=== PATIENT | male | born 1975 | race Caucasian/White ===

== ENCOUNTER 2024-09-18 22:51 | Inpatient (IN) | payer OTHER ==
[2024-09-18] MEDS ORDERED: ONDANSETRON 4 MG/2 ML VIAL ONE (23:34)
[2024-09-18] MEDS ORDERED: DICYCLOMINE HCL 20 MG/2 ML AMP IM ONE (23:34)
[2024-09-18] MEDS ORDERED: KETOROLAC 30 MG/ML INJ ONE (23:34)
[2024-09-18] MEDS ORDERED: NA CHLORIDE 0.9% 2,000 ML ONE (23:35)
[2024-09-18 23:37] LABS: Absolute Eosinophils 0.1 K/uL (0-0.5); Absolute Lymphocytes (CBC) 0.9 K/uL (0.7-4.9); Absolute Monocytes 0.7 K/uL (0.1-1.3); Absolute Neutrophil 7.5 K/uL (1.8-8.0); Basophils % 0.4 % (0-1.3); Eosinophils % 1.6 % (0-4.4); Hematocrit 48.1 % (39.6-49.0); Hemoglobin 16.9 g/dL (13.6-17.9); Lymphocytes % 9.2 % (15.3-44.8); MCH 30.7 pg (27.0-35.0); MCHC 35.2 g/dL (32.0-36.0); MCV 87.3 fL (80-100); MPV 9.3 fL (7.6-11.3); Monocytes % 7.9 % (3.3-12.3); Neutrophils % 80.9 % (41.7-73.7); Nucleated Red Blood Cells % 0.1 % (0-0); Platelets 229 thou/uL (152-406); RBC Red Blood Cell Count 5.51 M/uL (4.33-5.43); Red Cell Distribution Width 13.5 % (12.1-15.2)
[2024-09-19 00:04] LABS: Albumin 3.9 g/dL (3.4-5.0); Anion Gap 9.9 mEq/L (5.0-15.0); Bilirubin Total 1.7 mg/dL (0.2-1.0); Globulin 3.8 g/dL (2.3-3.5); Potassium 3.9 mEq/L (3.5-5.1); Protein, Total 7.7 g/dL (6.4-8.2)
[2024-09-19 00:53] LABS: Specific Gravity > 1.030 (1.005-1.030); Sqamous Epithelial <5 /HPF (None Seen); Urine Bacteria None Seen /HPF (<20); Urine Bilirubin NEGATIVE (Negative); Urine Blood 1+ (Negative); Urine Clarity Clear (Clear); Urine Color Yellow (Yellow); Urine Culture Reflex Order NOT NEEDED; Urine Glucose NEGATIVE (Negative); Urine Ketones 1+ (Negative); Urine Micro Reflex YN NO BILL MICROSCOPIC; Urine Mucus 4+ /HPF (None Seen); Urine Nitrite NEGATIVE (Negative); Urine Protein 1+ (Negative); Urine Urobilinogen 1+ (Normal); Urine WBC <5 /HPF (<5)
--- NOTE | 2024-09-19 02:15 | EDPHYS ---
Physician Documentation [facility] Name: Glen Gotti Age: 49 yrs Sex: Male : 1975 Arrival Date: 09/18/2024 Time: 22:51 Bed 6 Private MD: ED Physician Stanley Eric HPI: 09/18 23:00 This 49 yrs old Male presents to ER via Unassigned with complaints of sp4 Abdominal Swelling, Abdominal Pain, Diarrhea, H/O MALIGNACY OF COLON, COLECTOMY IN 2019. 09/19 07:18 Patient presents with complaint of diffuse abdominal pain vomiting and diarrhea. sp4 History of colon cancer with partial colectomy of ascending colon in 2019.. Historical: - Allergies: 09/18 23:00 No Known Allergies; rg5 - PMHx: 23:00 appendectomy; removal of ascending colon; rg5 - Immunization history:: Adult Immunizations not up to date. - Infectious Disease History:: Denies. - Social history:: Smoking status: Patient reports the use of cigarette tobacco products. - Family history:: not pertinent. ROS: 09/19 07:18 Constitutional: Negative for fever, chills, and weight loss, Eyes: Negative for sp4 injury, pain, redness, and discharge, All other systems are negative, Exam: 07:18 Constitutional: This is a well developed, well nourished patient who is awake, alert, sp4 and in no acute distress. Head/Face: Normocephalic, atraumatic. Eyes: Pupils equal round and reactive to light, extra-ocular motions intact. Lids and lashes normal. Conjunctiva and sclera are not injected. Cornea within normal limits. Periorbital areas with no swelling, redness, or edema. ENT: Nares patent. No nasal discharge, no septal abnormalities noted. Tympanic membranes are normal and external auditory canals are clear. Oropharynx with no redness, swelling, or masses, exudates, or evidence of obstruction, uvula midline. Mucous membranes moist. Neck: Trachea midline, no thyromegaly or masses palpated, and no cervical lymphadenopathy. Supple, full range of motion without nuchal rigidity, or vertebral point tenderness. Chest/axilla: Normal chest wall appearance and motion. Nontender with no deformity. No lesions are appreciated. Cardiovascular: Regular rate and rhythm with a normal S1 and S2. No gallops, murmurs, or rubs. Normal PMI, no JVD. No pulse deficits. Respiratory: Lungs have equal breath sounds bilaterally, clear to auscultation and percussion. No rales, rhonchi or wheezes noted. No increased work of breathing, no retractions or nasal flaring. Abdomen/GI: Soft, with normal bowel sounds. Diffuse abdominal tenderness with mild distention Back: No spinal tenderness. No costovertebral tenderness. Skin: Warm, dry with normal turgor. Normal color with no rashes, no lesions, and no evidence of cellulitis. MS/ Extremity: Pulses equal, no cyanosis. Neurovascular intact. Full, normal range of motion. Neuro: Awake and alert, GCS 15, oriented to person, place, time, and situation. Cranial nerves II-XII grossly intact. Motor strength 5/5 in all extremities. Sensory grossly intact. Psych: Awake, alert, with orientation to person, place and time. Behavior, mood, and affect are within normal limits Vital Signs: 09/18 23:00 BP 154 / 93; Pulse 91; Resp 17; Temp 98; Pulse Ox 96% on R/A; Weight 124.74 kg; Height rg5 5 ft. 11 in. ; Pain 8/10; 09/19 00:30 BP 121 / 75; Pulse 77; Resp 17; Pulse Ox 98% on R/A; Pain 0/10; rg5 01:36 BP 151 / 93; Pulse 74; Resp 17; Pulse Ox 97% on R/A; rg5 02:25 BP 167 / 91; Pulse 70; Resp 17; Pulse Ox 98% on R/A; rg5 03:29 BP 124 / 76; Pulse 76; Resp 18; Pulse Ox 96% on R/A; Pain 2/10; 5 09/18 23:00 Body Mass Index 38.35 (124.74 kg, 180.34 cm) [facility] 09/18 23:00 Pain Scale: Adult 5 09/19 00:30 Pain Scale: Adult rg5 03:29 Pain Scale: Adult rg5 Sandeep Coma Score: 07:18 Eye Response: spontaneous(4). Motor Response: obeys commands(6). Verbal Response: sp4 oriented(5). Total: 15. MDM: 09/18 23:12 Medical Screening Exam initiated sp4 09/19 01:39 ED course: PROCEDURE: Contrast-enhanced images of the abdomen and pelvis were performed sp4 from the lung bases to the ischial tuberosities after the administration of IV contrast. In addition multiplanar reformats in the coronal and sagittal plane were obtained and reviewed. An individualized dose optimization technique, Automated Exposure Control, was utilized for the performed procedure. FINDINGS: Lung bases: The lung bases demonstrate to be clear. Metallic artifact within the gastroesophageal junction correspond to LINX Device for gastroesophageal reflux disease. Liver: The liver demonstrated presence of decreased attenuation corresponding to fatty infiltration. Gallbladder: The gallbladder demonstrates presence of layering high density structures corresponding to cholelithiasis. No significant inflammatory changes and/or biliary duct dilatation. Adrenal glands: The adrenal glands demonstrate to be normal. Pancreas: The pancreas demonstrate to be normal. Spleen: The spleen demonstrate to be within normal limits. Kidneys: The kidneys demonstrate normal uptake of contrast media. There is no evidence for nephrolithiasis and/or hydronephrosis. GI: There is a metallic artifact within the gastric esophageal junction corresponding to a LINX device for gastroesophageal reflux disease. Otherwise the the unopacified stomach demonstrate to be within normal limits. There is a prominent/dilated small bowel loops left flank and down to the pelvis extending along the right lower quadrant within the region of the surgical anastomosis with the findings just most likely right hemicolectomy. No definite transition is identified. The left-sided colon demonstrate to be decompressed with no gross abnormalities. : The urinary bladder demonstrate to be partially distended with no gross abnormalities. Genitalia: The prostate gland is normal. Abdominal aorta: The aorta demonstrate to be within normal limits. Retroperitoneum:There is no retroperitoneal lymphadenopathy. Small trace of fluid within the rectovesical space. Bones: The bony structures demonstrate to be within normal limits. No evidence for compression deformity and/or significant skeletal lesions. Soft tissues: Minimal haziness is identified within the umbilical/periumbilical area findings could correspond to minimal inflammation and/or fluid perhaps related to previous trocar from laparoscopic surgery. IMPRESSION: Prominent/dilated small bowel loops left flank and down to the pelvis extending along the right lower quadrant within the region of the surgical anastomosis with the findings just most likely right hemicolectomy. No definite transition is identified. Minimal haziness within the umbilical/periumbilical area findings could correspond to minimal inflammation and/or fluid perhaps related to previous trocar from laparoscopic surgery. Cholelithiasis. Fatty infiltration of the liver. Metallic artifact within the gastroesophageal junction corresponding to a LINX device for gastroesophageal reflux disease. . 02:07 Differential diagnosis: Nonspecific abd pain, gastritis, pancreatitis, diverticulitis, sp4 viral gastroenteritis, gastroenteritis. Data reviewed: vital signs, nurses notes, lab test result(s), radiologic studies, CT scan. Consideration of Admission/Observation Patient was admitted/placed on observation. Escalation of care including admission/observation considered. Management of patient was discussed with the following: Hospitalist: Bhavik LARA. Cotton Dispatcher: Ryan LARA . ED course: Partial small bowel obstruction noticed by radiologist on CT. This was termed as dilated small bowel loops left flank in the region of surgical anastomosis with the findings most likely right hemicolectomy. Patient was informed that he should be admitted to the hospital and made n.p.o. NG tube not indicated at this time. Will place consult for General Surgeon . 09/18 23:12 Order name: CBC with Diff; Complete Time: 01:39 sp4 09/18 23:12 Order name: CMP; Complete Time: 01:39 sp4 09/18 23:12 Order name: Lipase; Complete Time: 01:39 sp4 09/18 23:33 Order name: Urinalysis W/Microscopic; Complete Time: 01:39 sp4 09/19 02:29 Order name: Urinalysis w/ reflexes [facility] 09/19 02:29 Order name: CBC with Automated Diff [facility] 09/19 02:29 Order name: CBC with Automated Diff [facility] 09/19 02:29 Order name: Comprehensive Metabolic Panel [facility] 09/19 02:29 Order name: Comprehensive Metabolic Panel [facility] 09/18 23:33 Order name: CT Abd/Pelvis - IV Contrast Only sp4 09/19 02:29 Order name: CONS Physician Consult [facility] 09/18 23:12 Order name: IV Saline Lock; Complete Time: 23:27 sp4 09/18 23:12 Order name: Labs collected and sent; Complete Time: 23:27 sp4 Administered Medications: 09/18 23:48 Drug: NS 0.9% IV 1000 ml IV at 1 bolus Per protocol; to be given as a bolus over 60 rg5 minutes Route: IV; Rate: 1 bolus; Site: left antecubital; 09/19 03:27 Follow up: IV Status: Completed infusion; IV Intake: 1000ml rg5 09/18 23:48 Drug: NS 0.9% IV 1000 ml IV at 1 bolus Per protocol; to be given as a bolus over 60 rg5 minutes Route: IV; Rate: 1 bolus; Site: left antecubital; 09/19 03:27 Follow up: IV Status: Completed infusion; IV Intake: 1000ml rg5 09/18 23:49 Drug: Ondansetron IVP 4 mg IVP once; over 2 minutes Route: IVP; Site: left antecubital; rg5 09/19 03:27 Follow up: Response: No adverse reaction rg5 09/18 23:49 Drug: Ketorolac IVP 30 mg IVP once Route: IVP; Site: left antecubital; rg5 09/19 00:00 Follow up: Response: No adverse reaction; Pain is decreased rg5 09/18 23:49 Drug: Dicyclomine IM 20 mg IM once Route: IM; Site: left deltoid; rg5 09/19 03:26 Follow up: Response: No adverse reaction rg5 02:27 Drug: morphine IVP or IV 6 mg IVP once over 4 mins Route: IVP; Infused Over: 4 mins; bm8 Site: left antecubital; 03:15 Follow up: Response: No adverse reaction; Pain is decreased rg5 02:27 Drug: metoCLOPramide IVP 10 mg IVP once; over 1 to 2 minutes Route: IVP; Site: left bm8 antecubital; 03:26 Follow up: Response: No adverse reaction; Pain is decreased rg5 Disposition Summary: 09/19/24 02:13 Hospitalization Ordered Notes: Hospitalization Status: Inpatient Admission sp4 Provider: Neftali Gutierres Location: Telemetry/MedSurg (observation) sp4 Condition: Fair sp4 Problem: new sp4 Symptoms: have improved sp4 Bed/Room Type: Standard 4 Room Assignment: [facility](09/19/24 02:59) kmf Diagnosis - Change in bowel habit sp4 - Partial small bowel obstruction, history of partial colectomy, Nausea and Vomiting sp4 Forms: - Medication Reconciliation Form sp4 - SBAR form sp4 - Leadership Thank You Letter sp4 Signatures: Dispatcher [employer] Stanley Escudero MD MD sp4 [facility] Inderjit Rocha, RN RN bm8 Forest Vlaadez, RN RN rg5 Corrections: (The following items were deleted from the chart) 09/18 23:12 23:12 CBC+H.LAB.BRZ ordered. EDMS EDMS 23:12 23:12 COMPREHENSIVE METABOLIC PANEL+C.LAB.BRZ ordered. EDMS EDMS 23:12 23:12 LIPASE+C.LAB.BRZ ordered. EDMS EDMS 23:33 23:33 Urinalysis W/Microscopic+U.LAB.BRZ ordered. EDMS EDMS 23:33 23:33 Abdomen Pelvis W Con+CT.RAD.BRZ ordered. [facility] EDMS 09/19 02:59 02:[address] 07:36 07:18 Constitutional: This is a well developed, well nourished patient who is awake, sp4 alert, and in no acute distress. Head/Face: Normocephalic, atraumatic. Eyes: Pupils equal round and reactive to light, extra-ocular motions intact. Lids and lashes normal. Conjunctiva and sclera are not injected. Cornea within normal limits. Periorbital areas with no swelling, redness, or edema. ENT: Nares patent. No nasal discharge, no septal abnormalities noted. Tympanic membranes are normal and external auditory canals are clear. Oropharynx with no redness, swelling, or masses, exudates, or evidence of obstruction, uvula midline. Mucous membranes moist. Neck: Trachea midline, no thyromegaly or masses palpated, and no cervical lymphadenopathy. Supple, full range of motion without nuchal rigidity, or vertebral point tenderness. Chest/axilla: Normal chest wall appearance and motion. Nontender with no deformity. No lesions are appreciated. Cardiovascular: Regular rate and rhythm with a normal S1 and S2. No gallops, murmurs, or rubs. Normal PMI, no JVD. No pulse deficits. Respiratory: Lungs have equal breath sounds bilaterally, clear to auscultation and percussion. No rales, rhonchi or wheezes noted. No increased work of breathing, no retractions or nasal flaring. Abdomen/GI: Soft, with normal bowel sounds. No distension or tympany. No guarding or rebound. No evidence of tenderness throughout. Back: No spinal tenderness. No costovertebral tenderness. Skin: Warm, dry with normal turgor. Normal color with no rashes, no lesions, and no evidence of cellulitis. MS/ Extremity: Pulses equal, no cyanosis. Neurovascular intact. Full, normal range of motion. Neuro: Awake and alert, GCS 15, oriented to person, place, time, and situation. Cranial nerves II-XII grossly intact. Motor strength 5/5 in all extremities. Sensory grossly intact. Psych: Awake, alert, with orientation to person, place and time. Behavior, mood, and affect are within normal limits sp4
--- NOTE | 2024-09-19 02:15 | ER ---
Nurse's Notes [facility] Name: Glen Gotti Age: 49 yrs Sex: Male : 1975 Arrival Date: 09/18/2024 Time: 22:51 Bed 6 Private MD: Diagnosis: Change in bowel habit;Partial small bowel obstruction, history of partial colectomy, Nausea and Vomiting Presentation: 09/18 23:00 Chief complaint: Patient states: had a diarrhea started around 9 am, watery mostly this rg5 afternoon, my stomach feels bloated \T\ pain shoots up to 8 [address] I [address]. vomited several times whenever I try to eat \T\ drink. 23:00 Coronavirus screen: Client denies travel out of the [place] in the last 14 days. Ebola rg5 Screen: Patient negative for fever greater than or equal to 101.5 degrees Fahrenheit, and additional compatible Ebola Virus Disease symptoms. Initial Sepsis Screen: Does the patient meet any 2 criteria? No. Patient's initial sepsis screen is negative. Does the patient have a suspected source of infection? No. Patient's initial sepsis screen is negative. Risk Assessment: Do you want to hurt yourself or someone else? Patient reports no desire to harm self or others. Onset of symptoms was September 18, 2024. 23:00 Method Of Arrival: Ambulatory rg5 23:00 Acuity: ALFREDA 3 rg5 Triage Assessment: 23:00 General: Appears in no apparent distress. Behavior is calm, cooperative. Pain: rg5 Complains of pain in abdomen Pain currently is 8 out of 10 on a pain scale. Quality of pain is described as aching, Pain began gradually, 4 hours ago. GI: Reports lower abdominal pain, upper abdominal pain, bloating, cramping, diarrhea, vomiting. : No signs and/or symptoms were reported regarding the genitourinary system. Musculoskeletal: Circulation, motion, and sensation intact. Range of motion: limited in all extremities. Historical: - Allergies: 23:00 No Known Allergies; rg5 - PMHx: 23:00 appendectomy; removal of ascending colon; rg5 - Immunization history:: Adult Immunizations not up to date. - Infectious Disease History:: Denies. - Social history:: Smoking status: Patient reports the use of cigarette tobacco products. - Family history:: not pertinent. Screenin:[facility] ED Fall Risk Assessment (Adult) History of falling in the last 3 months, rg5 including since admission No falls in past 3 months (0 pts) Confusion or Disorientation No (0 pts) Intoxicated or Sedated No (0 pts) Impaired Gait No (0 pts) Mobility Assist Device Used No (0 pt) Altered Elimination No (0 pt) Score/Fall Risk Level 0 - 2 = Low Risk Oriented to surroundings, Maintained a safe environment, Hourly rounding (assess needs \T\ fall precautionary measures) done. Abuse screen: Denies threats or abuse. Nutritional screening: No deficits noted. Tuberculosis screening: No symptoms or risk factors identified. Assessment: 23:00 General: Appears in no apparent distress. comfortable. GI: Bowel sounds present in left rg5 upper quadrant Abd is soft Guarding noted Reports cramping, diarrhea, since 9am. 23:17 Reassessment: see triage assessment. 5 09/19 00:30 Reassessment: No changes from previously documented assessment. Patient and/or family rg5 updated on plan of care and expected duration. Pain level reassessed. Patient is alert, oriented x 3, equal unlabored respirations, skin warm/dry/pink. Vital Signs: 09/18 23:00 BP 154 / 93; Pulse 91; Resp 17; Temp 98; Pulse Ox 96% on R/A; Weight 124.74 kg; Height rg5 5 ft. 11 in. ; Pain 8/10; 09/19 00:30 BP 121 / 75; Pulse 77; Resp 17; Pulse Ox 98% on R/A; Pain 0/10; 5 01:36 BP 151 / 93; Pulse 74; Resp 17; Pulse Ox 97% on R/A; rg5 02:25 BP 167 / 91; Pulse 70; Resp 17; Pulse Ox 98% on R/A; rg5 03:29 BP 124 / 76; Pulse 76; Resp 18; Pulse Ox 96% on R/A; Pain 2/10; [facility] 09/18 23:00 Body Mass Index 38.35 (124.74 kg, 180.34 cm) [facility] 09/18 23:00 Pain Scale: Adult 5 09/19 00:30 Pain Scale: Adult rg5 03:29 Pain Scale: Adult rg Gilbert Coma Score: 07:18 Eye Response: spontaneous(4). Motor Response: obeys commands(6). Verbal Response: sp4 oriented(5). Total: 15. ED Course: 09/18 22:56 Patient arrived in ED. jj6 23:00 Stanley Eric MD is Attending Physician. sp4 23:00 Forest Valadez RN is Primary Nurse. rg5 23:00 Arm band placed on. rg5 23:00 Patient has correct armband on for positive identification. Bed in low position. Call rg5 light in reach. Side rails up X 1. Door closed. Noise minimized. Warm blanket given. 23:00 No provider procedures requiring assistance completed. Inserted saline lock: 20 gauge rg5 in left antecubital area, using aseptic technique. Blood collected. Flushed with 10 mL NS. 23:13 Triage completed. rg5 09/19 00:51 CT Abd/Pelvis - IV Contrast Only In Process Unspecified. EDMS 02:12 Neftali Gutierres MD is Hospitalizing Provider. sp4 03:28 Provided Education on: needs for admit. rg5 03:28 IV discontinued, bleeding controlled, No redness/swelling at site. Pressure dressing rg5 applied. Administered Medications: 09/18 23:48 Drug: NS 0.9% IV 1000 ml IV at 1 bolus Per protocol; to be given as a bolus over 60 rg5 minutes Route: IV; Rate: 1 bolus; Site: left antecubital; 09/19 03:27 Follow up: IV Status: Completed infusion; IV Intake: 1000ml rg5 09/18 23:48 Drug: NS 0.9% IV 1000 ml IV at 1 bolus Per protocol; to be given as a bolus over 60 rg5 minutes Route: IV; Rate: 1 bolus; Site: left antecubital; 09/19 03:27 Follow up: IV Status: Completed infusion; IV Intake: 1000ml rg5 09/18 23:49 Drug: Ondansetron IVP 4 mg IVP once; over 2 minutes Route: IVP; Site: left antecubital; rg5 09/19 03:27 Follow up: Response: No adverse reaction rg5 09/18 23:49 Drug: Ketorolac IVP 30 mg IVP once Route: IVP; Site: left antecubital; rg5 09/19 00:00 Follow up: Response: No adverse reaction; Pain is decreased rg5 09/18 23:49 Drug: Dicyclomine IM 20 mg IM once Route: IM; Site: left deltoid; rg5 09/19 03:26 Follow up: Response: No adverse reaction rg5 02:27 Drug: morphine IVP or IV 6 mg IVP once over 4 mins Route: IVP; Infused Over: 4 mins; bm8 Site: left antecubital; 03:15 Follow up: Response: No adverse reaction; Pain is decreased rg5 02:27 Drug: metoCLOPramide IVP 10 mg IVP once; over 1 to 2 minutes Route: IVP; Site: left bm8 antecubital; 03:26 Follow up: Response: No adverse reaction; Pain is decreased rg5 Medication: 09/18 23:00 VIS not applicable for this client. rg5 Intake: 09/19 03:27 IV: 1000ml; Total: 1000ml. rg5 03:27 IV: 1000ml; Total: 2000ml. rg5 Outcome: 02:13 Decision to Hospitalize by Provider. sp4 03:29 Admitted to Med/surg accompanied by tech, via wheelchair, rg5 03:29 Condition: stable 03:29 Instructed on the need for admit, 04:11 Patient left the ED. rg5 Signatures: Dispatcher [employer] EDMS Yanelis Thomas Sergey, MD MD sp4 Inderjit Rocha RN RN bm8 Forest Valadez RN RN rg5
[2024-09-19] MEDS ORDERED: ONDANSETRON 4 MG/2 ML VIAL IV PRN (02:24)
[2024-09-19] MEDS ORDERED: ACETAMINOPHEN 650MG/RECT SUPP PR PRN (02:24)
--- NOTE | 2024-09-19 02:24 | P.HP ---
Certification for Inpatient Patient admitted to: Inpatient With expected LOS: >2 Midnights Practitioner: I am a practitioner with admitting privileges, knowledge of patient current condition, hospital course, and medical plan of care. Services: Services provided to patient in accordance with Admission requirements found in Title 42 Section 412.3 of the Code of Federal Regulations Patient History Date of Service: 09/19/24 Reason for admission: Abdominal Pain History of Present Illness: 49 yrs old Male with past medical history of colon cancer , status post partial colectomy of ascending colon , history of DVT postsurgery, brought to ER with abdominal pain and diarrhea which has been going on since this morning. Insidious in onset. Started up heaviness in the abdomen, associated with some cramps, intermittent, had multiple episodes of diarrhea. Denies any nausea or vomiting. No fever or chills. No sick contacts. Patient had a colonoscopy yearly and the last 1 was 2023 which was showed no acute changes other than few polyps. Never had any chemotherapy or radiation therapy. 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 Had Linx device for GERD Patient was assessed in the ER and had a CT abdomen pelvis and was consistent with possible partial bowel obstruction and was admitted for further management . Allergies No Known Allergies Allergy (Unverified 09/19/24 04:13) Home medications list reviewed: Yes Home Medications: Aspirin Chewable [Aspirin Chewable*] 81 mg PO DAILY 09/19/24 Omeprazole [Prilosec] 40 mg PO DAILY 09/19/24 - Past Medical/Surgical History Past Medical History: Reviewed- Non-Contributory -: Colon Ca Past Surgical History: Reviewed- Non-Contributory - Family History Family History: Reviewed- Non-Contributory - Social History Smoking Status: Never smoker Review of Systems 10-point ROS is otherwise unremarkable Physical Examination - Vital Signs Temperature: 98 F Blood Pressure: 148/78 Pulse: 90 Respirations: 18 Pulse Ox (%): 94 - Physical Exam General: Alert, In no apparent distress, Oriented x3 HEENT: Atraumatic, Normocephalic Neck: Supple, No LAD Respiratory: Clear to auscultation bilaterally, Normal air movement Cardiovascular: Regular rate/rhythm, Normal S1 S2 Capillary refill: <2 Seconds Gastrointestinal: Soft and benign, W/out hepatosplenomegaly, Distended, Tenderness Musculoskeletal: No clubbing, No swelling Integumentary: No rashes, No breakdown Neurological: Normal strength at 5/5 x4 extr, Cranial nerves 3-12 intact, Normal reflexes 2+ Lymphatics: No axilla or inguinal lymphadenopathy - Studies Laboratory Data (last 24 hrs) 09/18/24 09/18/24 23:27 23:27 WBC 9.30 Hgb 16.9 Hct 48.1 Plt Count 229 Sodium 137 Potassium 3.9 BUN 12 Creatinine 1.31 H Glucose 115 H Total Bilirubin 1.7 H AST 31 ALT 60 Alkaline Phosphatase 89 Lipase 30 Assessment and Plan - Plan Partial small bowel obstruction Patient has multiple bowel movements Denies any constipation No nausea or vomiting CT findings noted Prominent/dilated small bowel loops left flank and down to the pelvis extending along the right lower quadrant within the region of the surgical anastomosis with the findings just most likely right hemicolectomy. No definite transition is identified. Minimal haziness within the umbilical/periumbilical area findings could correspond to minimal inflammation and/or fluid perhaps related to previous trocar from laparoscopic surgery. Will keep n.p.o. for now Surgery consulted IV hydration Cholelithiasis. Fatty infiltration of the liver. No signs of any acute cholecystitis Monitor closely History of colon cancer status post ascending colectomy Last colonoscopy was normal as per patient except for a few polyps On yearly surveillance GERD History of Basilio's CT : Metallic artifact within the gastroesophageal junction corresponding to a LINX device for gastroesophageal reflux disease. Continue PPI GI/DVT prophylaxis Advanced directive full code Discharge Plan: Home Plan to discharge in: 48 Hours - Advance Directives Does patient have a Living Will: No Does patient have a Durable POA for Healthcare: No - Code Status/Comfort Care Code Status: Full Code Time Spent Managing Pts Care (In Minutes): 48
[2024-09-19] MEDS ORDERED: METOCLOPRAMIDE 10 MG/2mL INJ ONE (02:25)
[2024-09-19] MEDS ORDERED: MORPHINE 2 MG/ML SYR ONE (02:26)
[2024-09-19] MEDS ORDERED: MORPHINE 4 MG/ML SYR ONE (02:26)
--- NOTE | 2024-09-19 03:05 | RAD REPORT ---
EXAM DESCRIPTION: CT ABDOMEN PELVIS WITH IV CONTRAST 09/19/2024 1:24 AM CDT CLINICAL HISTORY: 49 years, Male, Abdominal pain. COMPARISON: None. PROCEDURE: Contrast-enhanced images of the abdomen and pelvis were performed from the lung bases to the ischial tuberosities after the administration of IV contrast. In addition multiplanar reformats in the coronal and sagittal plane were obtained and reviewed. An individualized dose optimization technique, Automated Exposure Control, was utilized for the perfo rmed procedure. FINDINGS: Lung bases: The lung bases demonstrate to be clear. Metallic artifact within the gastroesophageal nano ction correspond to LINX Device for gastroesophageal reflux disease. Liver: The liver demonstrated presence of decreased attenuation corresponding to fatty infiltration. Gallbladder: The gallbladder demonstrates presence of layering high density structures corresponding to cholelithiasis. No significant inflammatory changes and/or biliary duct dilatation. Adrenal glands: The adrenal glands demonstrate to be normal. Pancreas: The pancreas demonstrate to be normal. Spleen: The spleen demonstrate to be within normal limits. Kidneys: The kidneys demonstrate normal uptake of contrast media. There is no evidence for nephroli thiasis and/or hydronephrosis. GI: There is a metallic artifact within the gastric esophageal junction corresponding to a LINX devic e for gastroesophageal reflux disease. Otherwise the the unopacified stomach demonstrate to be within normal limits. There is a prominent/dilated small bowel loops left flank and down to the pelvis extending along the right lower quadrant within the region of the surgical anastomosis with the findings just most likely right hemicolectomy. No definite transition is identified. The left-sided colon demonstrate to be decompressed with no gross abnormalities. : The urinary bladder demonstrate to be partially distended with no gross abnormalities. Genitalia: The prostate gland is normal. Abdominal aorta: The aorta demonstrate to be within normal limits. Retroperitoneum: There is no retroperitoneal lymphadenopathy. Small trace of fluid within the rectove sical space. Bones: The bony structures demonstrate to be within normal limits. No evidence for compression deform ity and/or significant skeletal lesions. Soft tissues: Minimal haziness is identified within the umbilical/periumbilical area findings could c orrespond to minimal inflammation and/or fluid perhaps related to previous trocar from laparoscopic surgery. IMPRESSION: Prominent/dilated small bowel loops left flank and down to the pelvis extending along the right lower quadrant within the region of the surgical anastomosis with the findings just most likely right hemicolectomy. No definite transition is identified. Minimal haziness within the umbilical/periumbilical area findings could correspond to minimal inflamm ation and/or fluid perhaps related to previous trocar from laparoscopic surgery. Cholelithiasis. Fatty infiltration of the liver. Metallic artifact within the gastroesophageal junction corresponding to a LINX device for gastroesoph ageal reflux disease. Electronically signed by: Braydon Olivas MD 09/19/2024 01:34 AM CDT RP Due to temporary technical issues with the PACS/MedStartr reporting system, reports are being anahy d by the in-house radiologist without review as a courtesy to ensure prompt reporting the interpreting radiologist is fully responsible for the content of the report. Transcribed Date/Time: 09/19/2024 3:05 AM
[2024-09-19 04:25] VITALS: BMI 39.2
[2024-09-19] MEDS: D5 0.45 NS 1,000 ML IV SCH (04:45)
[2024-09-19] MEDS: MORPHINE 2 MG/ML SYR IV PRN (06:09)
--- NOTE | 2024-09-19 07:21 | P.PN ---
Date of Service: 09/19/24 Subjective: feels some improvement pain less severe, less often denies any prior SBO episodes ROS: 10 point ROS as noted above, otherwise negative Physical Exam: GEN: Alert, oriented, NAD CV: Regular rate and rhythm, no edema Pulm: Nonlabored respirations on room air, clear bilaterally ABD: soft, diffuse tenderness but most notable epigastric/periumbilical Neuro: Normal speech, normal affect Problem List: Intractable Nausea/Vomiting, possible partial SBO Abdominal pain, Diarrhea GERD s/p LINX device cholelithiasis - incidental finding Hx of Basilio's esophagus s/p esophageal ablation Hx of colon cancer s/p partial colectomy (2019) Hx DVT, ?provoked on admission, presents with worsening abdominal pain. Reports multiple episodes of nausea/vomiting after intake; +multiple episodes of diarrhea on 09/18. Had colonoscopy in 2023 which noted a few polyps per patient otherwise okay. CT abd/pelvis (09/18): Prominent/dilated small bowel loops left flank extending down to RLQ near surgical anastomosis. Minimal haziness within the umbilical/periumbilical area findings could correspond to minimal inflammation/fluid. CT also noted Cholelithiasis, Fatty liver infiltrate, LINX device. Started on empiric zosyn on admission (09/19-) Pain control, IV fluids Given Reglan, Dicyclomine, pain meds, IVF in ED. Confirm home meds, restart as appropriate 09/19 - Dr. Davis, general surgeon consulted advance diet this evening Serial abdominal exams VTE: Lovenox Code: Full Dispo: Home, ~24-48hrs Time Spent Managing Pts Care (In Minutes): 55
[2024-09-19 07:34] LABS: Absolute Eosinophils 0.2 K/uL (0-0.5); Absolute Lymphocytes (CBC) 0.9 K/uL (0.7-4.9); Absolute Monocytes 0.7 K/uL (0.1-1.3); Absolute Neutrophil 6.2 K/uL (1.8-8.0); Basophils % 0.3 % (0-1.3); Eosinophils % 2.5 % (0-4.4); Hematocrit 41.8 % (39.6-49.0); Hemoglobin 14.6 g/dL (13.6-17.9); MCH 30.7 pg (27.0-35.0); MCHC 34.8 g/dL (32.0-36.0); MCV 88.3 fL (80-100); MPV 9.3 fL (7.6-11.3); Monocytes % 9.2 % (3.3-12.3); Platelets 182 thou/uL (152-406); RBC Red Blood Cell Count 4.74 M/uL (4.33-5.43); Red Cell Distribution Width 13.5 % (12.1-15.2)
[2024-09-19 07:40] LABS: Albumin 3.3 g/dL (3.4-5.0); Albumin/Globulin Ratio 1.1 (1.1-1.8); Anion Gap 6.1 mEq/L (5.0-15.0); Bilirubin Direct 0.4 mg/dL (0-0.2); Bilirubin Total 1.6 mg/dL (0.2-1.0); Potassium 4.1 mEq/L (3.5-5.1); Protein, Total 6.3 g/dL (6.4-8.2)
[2024-09-19] MEDS: ENOXAPARIN 40 MG/0.4 ML SQ SCH (09:00)
[2024-09-19] MEDS: PIPER TAZO 3.375 GM in NA CHLORIDE 0.9% 100 ML IV SCH (09:52)
[2024-09-19] MEDS: KETOROLAC 30 MG/ML INJ IV PRN (15:11)
[2024-09-19 16:20] VITALS: O2SAT 100
[2024-09-20 06:39] LABS: Absolute Eosinophils 0.3 K/uL (0-0.5); Absolute Lymphocytes (CBC) 1.4 K/uL (0.7-4.9); Absolute Monocytes 0.4 K/uL (0.1-1.3); Absolute Neutrophil 2.1 K/uL (1.8-8.0); Basophils % 0.4 % (0-1.3); Eosinophils % 6.2 % (0-4.4); Hematocrit 42.8 % (39.6-49.0); Hemoglobin 14.4 g/dL (13.6-17.9); Lymphocytes % 32.4 % (15.3-44.8); MCH 30.2 pg (27.0-35.0); MCHC 33.6 g/dL (32.0-36.0); MCV 89.8 fL (80-100); MPV 9.2 fL (7.6-11.3); Monocytes % 10.4 % (3.3-12.3); Neutrophils % 50.6 % (41.7-73.7); Nucleated Red Blood Cells % 0.1 % (0-0); Platelets 173 thou/uL (152-406); RBC Red Blood Cell Count 4.76 M/uL (4.33-5.43); Red Cell Distribution Width 13.4 % (12.1-15.2)
[2024-09-20 06:46] LABS: Albumin 3.1 g/dL (3.4-5.0); Albumin/Globulin Ratio 1.1 (1.1-1.8); Anion Gap 8.7 mEq/L (5.0-15.0); Globulin 2.9 g/dL (2.3-3.5); Potassium 3.7 mEq/L (3.5-5.1)
[2024-09-20] MEDS: POTASSIUM CL SA 10 MEQ TAB PO ONE (07:30)
[2024-09-20 08:03] VITALS: BP 130/76; TEMP 97.7
--- NOTE | 2024-09-20 08:26 | P.DS ---
Admission Date: 09/19/24 Discharge Date: 09/20/24 Reason for Admission: Abdominal Pain Consultations: General surgery - Dr. Davis Brief History of Present Illness: 49yo M, PMH: colon cancer , status post partial colectomy of ascending colon , history of DVT postsurgery, Patient brought to ER with abdominal pain and diarrhea which has been going on since this morning. Insidious in onset. Started up heaviness in the abdomen, associated with some cramps, intermittent, had multiple episodes of diarrhea. Denies any nausea or vomiting. No fever or chills. No sick contacts. Patient had a colonoscopy yearly and the last 1 was 2023 which was showed no acute changes other than few polyps. Never had any chemotherapy or radiation therapy. 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 Had Linx device for GERD Patient was assessed in the ER and had a CT abdomen pelvis and was consistent with possible partial bowel obstruction and was admitted for further management . Hospital Course: Problem List: Intractable Nausea/Vomiting, resolved Abdominal pain, improved cholelithiasis - incidental finding GERD s/p LINX device Hx of Basilio's esophagus s/p esophageal ablation Hx of colon cancer s/p partial colectomy (2019) Hx DVT, ?provoked Physician discharge instructions: Patient presented with worsening abdominal pain, associated with nausea/vomiting worsened with intake. He reports multiple episodes of watery diarrhea on day of admission prior to arrival. CT abdomen/pelvis noted some prominent/dilated small bowel loops without a definite transition point. Given his history of R hemicolectomy / risk of SBO, he was admitted and managed conservatively for possible small bowel obstruction. His symptoms improved by the next morning. He was evaluated by [facility], Dr. Davis, and diet was advanced on the evening of 09/19. He had continued improvement, remained afebrile, without leukocytosis. His mild JENNIFER (Cr: 1.3, down to 1.19) and mild elevated of T. bili: 1.7 down to 1.0, resolved. Consistent with hypovolemia/dehydration. His CT did note layering stones in his gallbladder, but no evidence of inflammation/infection, no evidence of cholecystitis or CBD dilatation, and no RUQ tenderness. Discussed signs and symptoms of obstructing gallbladder stones to monitor for going forward, and to consider follow up with general surgery if these develop - to discuss possible elective cholecystectomy if needed. Patient's diet was slowly advanced and patient continued to improve and was passing flatus and had a bowel movement. Patient was feeling better, abdominal pain improved, nausea/vomiting resolved, and was deemed stable for discharge. Patient ambulating and tolerating soft diet on day of discharge. Dr. Davis recommended repeat colonoscopy in a few months to re-evaluate. Patient reports colonoscopy in 2023 which only noted a few polyps, otherwise okay. Advised patient to continue soft diet for next 3-5 days. Can slowly ease back into regular diet over the next week. Medications: no change on home medications Continue home medications as previously prescribed. Follow up: PCP 3-5 days GI in 2-4 weeks Please call to schedule / confirm appointments CT abdomen findings: 1. Prominent/dilated small bowel loops left flank and down to the pelvis extending along the right lower quadrant within the region of the surgical anastomosis with the findings just most likely right hemicolectomy. No definite transition is identified. 2. Minimal haziness within the umbilical/periumbilical area findings could correspond to minimal inflammation and/or fluid perhaps related to previous trocar from laparoscopic surgery. 3. Cholelithiasis. 4. Fatty infiltration of the liver. 5. Metallic artifact within the gastroesophageal junction corresponding to a LINX device for gastroesophageal reflux disease. Physical Exam: GEN: Alert, oriented, NAD CV: Regular rate and rhythm, no edema Pulm: Nonlabored respirations on room air, clear bilaterally ABD: soft, nontender, nondistended Neuro: Normal speech, normal affect Vital Signs/Physical Exam: Temp Pulse Resp BP Pulse Ox 97.7 F 63 20 130/76 97 09/20/24 08:00 09/20/24 08:00 09/20/24 08:00 09/20/24 08:00 09/20/24 08:00 Laboratory Data at Discharge: WBC 4.20 thou/uL (4.3-10.9) L 09/20/24 05:40 Hgb 14.4 g/dL (13.6-17.9) 09/20/24 05:40 Hct 42.8 % (39.6-49.0) 09/20/24 05:40 Plt Count 173 thou/uL (152-406) 09/20/24 05:40 Sodium 140 mEq/L (136-145) 09/20/24 05:40 Potassium 3.7 mEq/L (3.5-5.1) 09/20/24 05:40 BUN 9 mg/dL (7-18) 09/20/24 05:40 Creatinine 1.19 mg/dL (0.70-1.30) 09/20/24 05:40 Glucose 98 mg/dL (74-106) 09/20/24 05:40 Magnesium 2.0 mg/dL (1.6-2.4) 09/19/24 07:02 Total Bilirubin 1.0 mg/dL (0.2-1.0) 09/20/24 05:40 AST 22 U/L (15-37) 09/20/24 05:40 ALT 42 U/L (16-61) 09/20/24 05:40 Alkaline Phosphatase 64 U/L (45-117) 09/20/24 05:40 Lipase 30 U/L (13-75) 09/18/24 23:27 Home Medications: Aspirin Chewable [Aspirin Chewable*] 81 mg PO DAILY 09/19/24 Omeprazole [Prilosec] 40 mg PO DAILY 09/19/24 Physician Discharge Instructions: Physician discharge instructions: Patient presented with worsening abdominal pain, associated with nausea/vomiting worsened with intake. He reports multiple episodes of watery diarrhea on day of admission prior to arrival. CT abdomen/pelvis noted some prominent/dilated small bowel loops without a definite transition point. Given his history of R hemicolectomy / risk of SBO, he was admitted and managed conservatively for possible small bowel obstruction. His symptoms improved by the next morning. He was evaluated by [facility], Dr. Davis, and diet was advanced on the evening of 09/19. He had continued improvement, remained afebrile, without leukocytosis. His mild JENNIFER (Cr: 1.3, down to 1.19) and mild elevated of T. bili: 1.7 down to 1.0, resolved. Consistent with hypovolemia/dehydration. His CT did note layering stones in his gallbladder, but no evidence of inflammation/infection, no evidence of cholecystitis or CBD dilatation, and no RUQ tenderness. Discussed signs and symptoms of obstructing gallbladder stones to monitor for going forward, and to consider follow up with general surgery if these develop - to discuss possible elective cholecystectomy if needed. Patient's diet was slowly advanced and patient continued to improve and was passing flatus and had a bowel movement. Patient was feeling better, abdominal pain improved, nausea/vomiting resolved, and was deemed stable for discharge. Patient ambulating and tolerating soft diet on day of discharge. Dr. Davis recommended repeat colonoscopy in a few months to re-evaluate. Ramo bautista reports colonoscopy in 2023 which only noted a few polyps, otherwise okay. Advised patient to continue soft diet for next 3-5 days. Can slowly ease back into regular diet over the next week. Medications: no change on home medications Continue home medications as previously prescribed. Follow up: PCP 3-5 days GI in 2-4 weeks Please call to schedule / confirm appointments CT abdomen findings: 1. Prominent/dilated small bowel loops left flank and down to the pelvis extending along the right lower quadrant within the region of the surgical anastomosis with the findings just most likely right hemicolectomy. No definite transition is identified. 2. Minimal haziness within the umbilical/periumbilical area findings could correspond to minimal inflammation and/or fluid perhaps related to previous trocar from laparoscopic surgery. 3. Cholelithiasis. 4. Fatty infiltration of the liver. 5. Metallic artifact within the gastroesophageal junction corresponding to a LINX device for gastroesophageal reflux disease. Followup: [facility] [Primary Care Provider] - Time spent managing pt's care (in minutes): 45
== END 2024-09-20 11:02 | disposition home or self-care (01) | DRG 389 ==
LOC: ER 22:51 → ERHOLD 09-19 02:24 → 4TH 09-19 03:01
PROVIDERS: ADMIT Family Medicine; ATTEND Hospitalist
DX: K56.600 Partial intestinal obstruction, unspecified as to cause (principal); N17.9 Acute kidney failure, unspecified; E86.0 Dehydration; K76.0 Fatty (change of) liver, not elsewhere classified; K21.9 Gastro-esophageal reflux disease without esophagitis; K80.20 Calculus of gallbladder without cholecystitis without obstruction; F17.210 Nicotine dependence, cigarettes, uncomplicated; Z90.49 Acquired absence of other specified parts of digestive tract; Z85.038 Personal history of other malignant neoplasm of large intestine; Z79.82 Long term (current) use of aspirin; Z79.899 Other long term (current) drug therapy
CPT/HCPCS: 36415; 74177; 80053; 81001; 82248; 83690; 83735; 85025; 96361; 96372; 96374; 96375; 99285; J0500; J2270; J2405; J2543; J2765; J7030; J7799; Q9967